=== PATIENT | male | born 2000 | race Caucasian/White ===

== ENCOUNTER 2023-11-28 18:47 | Emergency (ER) | payer SELFPAY ==
[~2023-11-28] VITALS: Ht 170 cm; Wt 72.7 kg
[2023-11-28 19:07] VITALS: TEMP 98.5
[2023-11-28] MEDS ORDERED: Morphine 4 MG/ML VIAL IV ONE (20:00)
[2023-11-28] MEDS ORDERED: NS 1,000 ML IV ONE (20:00)
[2023-11-28 20:42] LABS: BASO # 0.1 K/mm3 (0.0-0.2); BASO % 0.8 % (0.0-2.0); EOS # 0.5 K/mm3 (0.0-0.7); EOS % 8.4 % (0.0-4.0); GRAN # 3.8 K/mm3 (1.4-6.5); HEMATOCRIT 45.8 % (42.0-52.0); HEMOGLOBIN 15.5 g/dl (13.5-18.0); LYMPH # 1.6 K/mm3 (1.2-3.4); LYMPH % 24.9 % (20.0-51.0); MEAN CELL VOLUME 86 fl (80.0-100.0); MEAN CORPUSCULAR HEMOGLOBIN 29 pg (27-31); MEAN CORPUSCULAR HGB CONC 34 g/dl (33.0-37.0); MEAN PLATELET VOLUME 9.3 fl (7.4-10.4); MONO # 0.5 K/mm3 (0.1-0.6); MONO % 7.7 % (1.7-9.3); PLATELET COUNT 205 K/mm3 (130-400); REDCELL DISTRIBUTION WIDTH-CV 13.1 % (11.5-14.5)
[2023-11-28] MEDS ORDERED: Iohexol 300 - 100 ML VIAL IV ONE (20:58)
[2023-11-28] MEDS ORDERED: NS 50 ML IV ONE (20:59)
[2023-11-28 21:03] LABS: ALANINE AMINOTRANSFERASE 24 U/L (0-55); ALBUMIN 4.3 g/dL (3.5-5.0); ALKALINE PHOSPHATASE 71 U/L (40-150); ANION GAP 10 mmol/L (7-16); AST,SGOT 17 U/L (5-34); BILIRUBIN,TOTAL 0.4 mg/dL (0.2-1.2); BLOOD UREA NITROGEN 12 mg/dL (9-21); CALCIUM 9.5 mg/dL (8.4-10.2); CHLORIDE 103 mEq/L (98-107); CREATININE, serum 0.93 mg/dL (0.72-1.25); GLUCOSE 82 mg/dL (70-99); LIPASE 24 U/L (8-78); MAGNESIUM 2.3 mg/dL (1.6-2.6); POTASSIUM 4.1 mEq/L (3.5-4.5); SODIUM 141 mEq/L (136-145); TOTAL PROTEIN 7.6 g/dl (6.2-8.1)
[2023-11-28 21:11] LABS: TROPONIN-I < 0.010 ng/mL (0.00-0.033)
[2023-11-28] MEDS ORDERED: Magnesium Citrate Oral Soln 300 ML BOTTLE PO ONE (22:00)
[2023-11-28 22:15] VITALS: BP 122/78; PULSE 65
== END 2023-11-28 22:18 | disposition home or self-care (01) ==
LOC: COL.ER 18:47
PROVIDERS: Emergency Medicine
DX: K59.00 Constipation, unspecified (principal)
CPT/HCPCS: J2270; J7030; Q9967